=== PATIENT | female | born 1985 | race African-American/Black ===

== ENCOUNTER 2022-09-09 04:10 | Inpatient (IN) | payer OTHER ==
[2022-09-09 06:07] VITALS: BMI 31.0
[2022-09-09] MEDS ORDERED: OXYTOCIN 30 UNITS in 0.9% NS 30 UNIT/500 ML INFUS.BAG IVPB ONE (07:24)
[2022-09-09 07:40] LABS: BASO % 0.4 % (0-2.0); EOS % 0.3 % (0-4.5); HEMATOCRIT 38.1 % (32.4-45.2); HEMOGLOBIN 12.4 GM/dL (10.7-15.3); LYMPH % 20.7 % (8-40); MCH 26.9 pg (25.7-33.7); MCHC 32.6 g/dl (32.0-36.0); MEAN CELL VOLUME 82.7 fl (80-96); MEAN PLT VOLUME 9.6 fl (7.5-11.1); MONO % 6.8 % (3.8-10.2); NEUT % 71.8 % (42.8-82.8); PLATELET COUNT 317 10^3/uL (134-434); RBC 4.61 M/mm3 (3.60-5.2); RDW 14.8 % (11.6-15.6); WHITE BLOOD COUNT 18.8 K/mm3 (4.0-10.0)
[2022-09-09 07:47] LABS: PROTHROMBIN TIME (PATIENT) 11.5 SEC (9.7-13.0)
[2022-09-09 07:49] LABS: ACTIVATED PTT 30.2 SECONDS (25.2-36.5)
[2022-09-09] MEDS ORDERED: ELECTROLYTE-148 SOLN 1,000 ML IV ONE (08:00)
[2022-09-09] MEDS ORDERED: LIDOCAINE HCL 1% PRESERVATIVE FREE - 30ML VIAL ONE (08:41)
[2022-09-09 09:22] LABS: CORD BASE EXCESS -4.3 mmol/L (0-2); CORD HCO3 21.9 mmHg (20-29); CORD pH 7.315 (7.14-7.44)
[2022-09-09 09:25] LABS: CORD BASE EXCESS -6.9 mmol/L (0-2); CORD HCO3 19.3 mmHg (20-29); CORD pH 7.29 (7.14-7.44)
[2022-09-09] MEDS ORDERED: WITCH HAZEL 50% (TUCKS) 40 PAD/JAR PAD TP PRN (09:42)
[2022-09-09] MEDS ORDERED: BENZOCAINE 20% 57 GM BOTTLE TP PRN (09:42)
[2022-09-09] MEDS ORDERED: METHYLERGONOVINE MALEATE 0.2 MG/1 ML AMP IM PRN (09:42)
[2022-09-09] MEDS ORDERED: oxyCODONE HCL 5 MG TABLET PO PRN (09:42)
[2022-09-09] MEDS ORDERED: BENZOCAINE 28 GM HEMORRHOIDAL OINTMENT TP PRN (09:42)
[2022-09-09] MEDS ORDERED: BISACODYL 10 MG SUPP.RECT RC PRN (09:42)
[2022-09-09] MEDS ORDERED: ELECTROLYTE-148 SOLN 1,000 ML IV SCH (09:45)
[2022-09-09] MEDS ORDERED: OXYTOCIN 20 UNITS in 0.9% NS 20 UNIT/1,000 ML INFUS.BAG IV SCH (09:45)
[2022-09-09] MEDS: IBUPROFEN 600 MG TABLET (FP) PO PRN ×2 (11:25→17:54)
[2022-09-10 00:21] VITALS: RESP 18
[2022-09-10] MEDS: ACETAMINOPHEN 325 MG TABLET (FP) PO PRN ×2 (06:08→11:45)
[2022-09-10 09:07] LABS: BASO % 0.3 % (0-2.0); EOS % 0.5 % (0-4.5); HEMATOCRIT 36.1 % (32.4-45.2); LYMPH % 15.1 % (8-40); MCH 27.3 pg (25.7-33.7); MCHC 33.2 g/dl (32.0-36.0); MEAN CELL VOLUME 82.2 fl (80-96); MEAN PLT VOLUME 8.8 fl (7.5-11.1); MONO % 7.1 % (3.8-10.2); PLATELET COUNT 289 10^3/uL (134-434); RBC 4.39 M/mm3 (3.60-5.2); RDW 14.8 % (11.6-15.6); WHITE BLOOD COUNT 19.9 K/mm3 (4.0-10.0)
[2022-09-10] MEDS: IBUPROFEN 600 MG TABLET (FP) PO PRN ×3 (09:38→20:37)
[2022-09-10] MEDS ORDERED: SENNOSIDES/DOCUSATE COMBO (SENNA PLUS) TABLET (UD) PO PRN (22:00)
[2022-09-11] MEDS: IBUPROFEN 600 MG TABLET (FP) PO PRN (08:34)
[2022-09-11 09:43] LABS: HEMATOCRIT 37.4 % (32.4-45.2); HEMOGLOBIN 12.2 GM/dL (10.7-15.3); MCH 27.2 pg (25.7-33.7); MCHC 32.8 g/dl (32.0-36.0); MEAN CELL VOLUME 82.9 fl (80-96); MEAN PLT VOLUME 8.8 fl (7.5-11.1); PLATELET COUNT 310 10^3/uL (134-434); RBC 4.51 M/mm3 (3.60-5.2); RDW 14.9 % (11.6-15.6); WHITE BLOOD COUNT 15.7 K/mm3 (4.0-10.0)
[2022-09-11 10:31] LABS: ANISOCYTOSIS 2+; MACROCYTOSIS 0
[2022-09-11 10:32] VITALS: BP 111/73; PULSE 76; TEMP 98.1
== END 2022-09-11 12:45 | disposition home or self-care (01) | DRG 560 ==
LOC: JDEL 04:10 → JLDR 05:00 → J3W 10:35
PROVIDERS: ADMIT Family Medicine; ATTEND Family Medicine
PROC: 10E0XZZ Delivery of Products of Conception, External Approach (ICD-10-PCS; principal; 2022-09-09)
PROC: 0KQM0ZZ Repair Perineum Muscle, Open Approach (ICD-10-PCS; 2022-09-09)
PROC: 10E0XZZ Delivery of Products of Conception, External Approach (ICD-10-PCS; 2022-09-09)
DX: O48.0 Post-term pregnancy (principal); O70.1 Second degree perineal laceration during delivery; Z3A.40 40 weeks gestation of pregnancy; Z37.0 Single live birth
CPT/HCPCS: 36415; 36600; 59409; 82803; 85025; 85610; 85730; 86780; 86850; 86900; 86901; C9803-CS; U0003; U0005